=== PATIENT | male | born 1950 | race Caucasian/White ===

== ENCOUNTER 2021-11-01 01:25 | Emergency (ER) | payer OTHER ==
[2021-11-01 01:49] VITALS: TEMP 98.5; BMI 24.4
[2021-11-01 02:03] VITALS: BP 174/101; PULSE 91
[2021-11-01 09:12] LABS: EPITHELIAL CELLS RARE /hpf
== END 2021-11-01 02:06 ==
LOC: FER 01:25
DX: R33.9 Retention of urine, unspecified (principal)
CPT/HCPCS: 81003; 81015; 87086; 99283-25